=== PATIENT | female | born 1995 | race Caucasian/White ===

== ENCOUNTER 2024-10-05 10:36 | Emergency (ER) | payer OTHER, SELFPAY ==
[2024-10-05] VITALS (9 sets, daily range): BP systolic 93–125; BP diastolic 58–78; BMI 28.0
[2024-10-05 11:38] LABS: Hematocrit 33.3 % (37.0-47.0); Hemoglobin 11.0 g/dL (12.0-16.0); Mean Corp Hgb Conc. 33.0 g/dL (33.0-37.0); Mean Corpuscular Volume 83.5 fL (81.0-99.0); Nucleated Red Blood Cells % 0 %; Platelet Count 225 10^3/uL (130-400); Red Cell Dist. Width 14.4 % (11.5-14.5)
[2024-10-05 11:47] LABS: HCG, Serum Qualitative Screen Negative
[2024-10-05 11:51] LABS: ALT (SGPT) 19 U/L (0-35); AST (SGOT) 21 U/L (14-36); Albumin 4.4 g/dl (3.5-5.0); Alkaline Phosphatase 66 U/L (38-126); Blood Urea Nitrogen 3 mg/dl (7-17); Calcium 9.0 mg/dl (8.4-10.2); Carbon Dioxide 24 mmol/L (22-30); Chloride 106 mmol/L (98-107); Estimated Creatinine Clearance > 125 ml/min; Glucose 97 mg/dl (70-99); Potassium 3.9 mmol/L (3.5-5.1); Sodium 137 mmol/L (135-145); Total Protein 7.1 g/dl (6.3-8.2); eGFR > 60.00
--- NOTE | 2024-10-05 12:10 | ED.GENMED ---
History of Present Illness
General
Chief Complaint: Flank Pain
Source: patient
Exam Limitations: none
Time Seen by Provider: 10/05/24 11:17
Nursing documentation reviewed up to this point in time: agreed with
History of Present Illness
History of Present Illness:
Patient is a 29-year-old female who presents to the ER for evaluation. Patient reports she started with back pain Thursday into Thursday several days ago and seen by PCP on Thursday diagnosed with UTI started on Cipro. Today she reports back pain is
getting worse and she was nauseous this morning did vomit once. She denies any fever or chills. She denies any urinary frequency or urgency. She does report she does have a kidney stone history with right ureteroscopic and stone extraction [address] Michaud.
Patient has an IUD in place no vaginal discharge no bleeding
Past History
Past History
ED Past Medical History: Other (Celiac), Other (Endometriosis) and Other (Irritable bowel, anxiety)
ED Past Surgical History: Other (Lap)
Social History
Tobacco: Non-smoker
Alcohol: None
Drug: None
Personal: Single
Living: with family
Employment: Student
Phy Exam
General Physical Exam
General Presentation: no apparent distress
General age: appears stated age
General Skin: warm and dry
General Habitus: normal and obese
General Mental: alert
General Hydration: appears well hydrated
Gastrointestinal Exam
Gastrointestinal Exam: soft and other ( + suprapubic tenderness )
Neurological Exam
Neurological Exam: alert
Musculoskeletal Exam
Musculoskeletal Exam: full ROM and other (Left-sided mild questional CVA tenderness)
Skin Exam
Skin Exam: normal color and warm/dry
Psychiatric Exam
Psychiatric Exam: normal mood/affect
Course
Orders/Labs/Results
Orders:
Orders
10/05/24 11:16
Test Result ONCE
10/05/24 11:25
CMP [Comprehensive Metabolic Panel] Urgent
Complete Blood Count/With Diff Urgent
HCG, Serum Qualitative Screen Urgent
Lactic Acid Urgent
10/05/24 11:55
UA Reflex to Culture [Urinalysis Reflex To Culture] Urgent
Date Specimen was Collected: 10/05/24
Time Specimen was Collected: 11:55
Urine Microscopic Reflex Cult Urgent
Urine Culture Urgent
SANTOSH Source: U
Specimen Description:
Date Specimen was Collected: 10/05/24
Time Specimen was Collected: 11:55
10/05/24 13:33
0.9% Sodium Chloride 1000 ml [Nss] 1,000 ml IV BOLUS
Ketorolac [Toradol] 15 mg IV NOW STA
Ondansetron HCl [Zofran] 4 mg PO NOW STA
10/05/24 13:34
CT Abd/pel Without Iv Or Oral Urgent
Comment:
Reason For Exam: flank pain
Abnormal Lab Results
10/05/24 10/05/24
11:25 11:55
RBC 3.99 L 10^6/uL
(4.20-5.40)
Hgb 11.0 L g/dL
(12.0-16.0)
Hct 33.3 L %
(37.0-47.0)
BUN 3 L mg/dl
(7-17)
Urine Nitrite (Reflex) Positive A
(Negative)
Leukocyte Esterase Rfl 1+ A
(Negative)
Urine Bacteria (Reflex) Few A
(Negative)
10/05/24 11:25
10/05/24 11:25
Vital Signs
Initial and Last Documented VS:
Initial Vital Signs
Temp Pulse Resp BP Pulse Ox
98.3 F 77 16 125/78 98
10/05/24 10:39 10/05/24 10:39 10/05/24 10:39 10/05/24 10:39 10/05/24 10:39
Last Documented Vital Signs
Temp Pulse Resp BP Pulse Ox
98.3 F 62 15 93/58 99
10/05/24 10:39 10/05/24 12:05 10/05/24 12:05 10/05/24 15:21 10/05/24 15:30
MDM/Problems Addressed
Differential Diagnosis Includes:
Not limited to UTI, pyelonephritis, renal colic, muscular pain
MDM/Problems Addressed:
As documented patient is a 29-year-old female who was treated for UTI has been on several days of Cipro however today had left-sided back pain and vomited. Patient denies any urinary frequency or urgency. Patient presents awake alert no acute
distress very tender to the left back to superficial tenderness, she is afebrile with a normal white count. Urinalysis shows nitrates however also squamous cells and patient has been on Cipro for the past several days. CAT scan was done no
findings of kidney stone, no obstructing calculus. I did speak with radiology over the phone no stranding or overt signs of pyelonephritis.
Patient is well-appearing we will have patient continue Cipro will give Zofran as needed however patient with no vomiting here. Discussed with patient to follow-up with her family doctor from previous culture results.
She is well-appearing in no acute distress stable for discharge home
*Radiology
Radiology exam reviewed: radiology read reviewed
*Pulse Oximetry
SaO2: 97
Oxygen Mode of Delivery: Room air
Patient hypoxic: no
*Critical Care Note
Total Time (30-74mins, 75-104mins- exclusive of procedures): Not Applicable
ED Attending Note
-
Portions of this chart may have been created with voice recognition software.� Occasional wrong word or��sound alike� substitutions may have occurred due to the inherent limitations of voice recognition software.
Discharge Plan
Departure
Patient Disposition: Home (Routine Discharge)
Date of Disposition: 10/05/24
Time of Disposition: 16:58
Patient with high blood pressure during this ER visit?: No
Condition: Fair
Covid-19: Not Applicable
Discharge Problem:
flank pain
Instructions: Flank Pain (DC)
Prescriptions:
New
ondansetron 4 mg tablet,disintegrating
4 mg PO Q8H PRN (Reason: nausea and vomiting) Qty: 10 0RF
No Action
cetirizine [Zyrtec] 10 MG tablet
10 mg PO DAILY
acetaminophen 325 MG tablet
650 mg PO Q4HPRN PRN (Reason: mild pain) 0RF
ibuprofen 600 MG tablet
600 mg PO Q4HPRN PRN (Reason: moderate pain/cramps) Qty: 30 0RF
ciprofloxacin HCl [Cipro] 500 mg Tablet
500 mg PO BID
phenazopyridine [Azo] 95 mg Tablet
190 mg PO TID PRN (Reason: bladder discomfort)
escitalopram oxalate [Lexapro] 10 mg Tablet
15 mg PO DAILY
Referrals:
Martha Kam NP [Family Provider, Internal Medicine]
Stand Alone Forms: Return to Work
Activity Restrictions/Additional Instructions:
As discussed please continue Cipro. A prescription for Zofran for nausea was sent to your pharmacy. Take as directed. Alternate between Motrin and Tylenol as needed stay well-hydrated. Follow-up with your family doctor in the next 2 days or
reevaluation. Please call your family doctor for previous results of your urine culture that were taken. You will be notified if your present antibiotic will not work for your recent infection
Interventions
Interventions:
*Risk Screen - Suicide Last Done: 10/05/24 10:39
*General Assessment Last Done: 10/05/24 11:04
*Neglect/Abuse Screening Last Done: 10/05/24 10:39
*ED- Fall Risk Assessment Last Done: 10/05/24 11:04
*ED COVID-19 Vaccine History Last Done: 10/05/24 11:04
EJ-Fylykz-Zgipgpfvhw Assessment Last Done: 10/05/24 11:04
ED-Female Genitourinary Assessment Last Done: 10/05/24 11:04
Discharge Date and Time
Print Language: ETHIOPIAN
[2024-10-05 12:15] LABS: Urine Character Clear (Clear)
[2024-10-05 12:36] LABS: Urine Red Blood Cell 0-2 /HPF (0-2)
[2024-10-05] MEDS: TORADOL 15 MG IV (13:41)
[2024-10-05] MEDS: ZOFRAN 4 MG PO (13:41)
[2024-10-05] MEDS: NSS 1000 IV (13:42)
== END 2024-10-05 17:48 | disposition home or self-care (01) ==
LOC: EMR 10:36
PROVIDERS: Emergency Medicine; Nurse Practitioner; EMERGENCY PHYSICIAN Emergency Medicine; FAMILY PHYSICIAN Nurse Practitioner Family
DX: R10.9 Unspecified abdominal pain (principal); K90.0 Celiac disease; K86.81 Exocrine pancreatic insufficiency; F41.9 Anxiety disorder, unspecified; K58.9 Irritable bowel syndrome, unspecified; E66.9 Obesity, unspecified; Z68.28 Body mass index [BMI] 28.0-28.9, adult; Z87.442 Personal history of urinary calculi
CPT/HCPCS: 99284; 96374; 74176; 80053; 81003; 81015; 83605; 84703; 85025; 87086